=== PATIENT | male | born 1995 | race African-American/Black ===

== ENCOUNTER 2023-02-12 22:33 | Emergency (ER) | payer BC, SELFPAY ==
[2023-02-12 22:38] VITALS: BP 148/85; PULSE 82; RESP 16; TEMP 35.6; O2SAT 98
--- NOTE | 2023-02-12 22:48 | ED_ITS ---
HPI - General Adult General Time Seen by Provider: 22:48 Date Seen: 02/12/23 Chief complaint: Extremity Pain/Injury, Upper Stated complaint: sharp pain right shoulder Time Seen by Provider: 02/12/23 22:47 Source: patient, RN notes reviewed and old records reviewed Mode of arrival: ambulatory Limitations: no limitations History of Present Illness HPI narrative: 27-year-old male who comes in today with right shoulder arm pain. Patient notes diffuse pain of the right shoulder radiating down the back of the right arm into the ulnar aspect of the right hand. This started tonight after throwing a softball. Denies any head or neck injury, no chest pain or breathing difficulty. Related Data Home Medications Medication Instructions Recorded Confirmed No Known Home Medications 02/12/23 02/12/23 Allergies Allergy/AdvReac Type Severity Reaction Status Date / Time No Known Drug Allergies Allergy Verified 02/12/23 22:42 Review of Systems Status of ROS: Reports: 10 or more systems reviewed and unremarkable except as noted in History and below PFSH PFS Social History Smoking Status: Smoker, status unknown Non-prescribed substance use: denies use service: No Exam Narrative: Exam Narrative: General: well nourished , NAD Head: Atraumatic and normocephalic ENT: External ears and external nose are normal Eyes: Conjunctiva clear, pupils are equal reactive, external ocular motions are intact Neck: Full spontaneous range of motion of the neck Lungs: No respiratory distress Musculoskeletal: Tenderness of the posterior shoulder. Pain of the anterior shoulder with forward flexion and of the posterior shoulder with reaching behind the back tenderness along the lateral olecranon as well Neurologic: No gross focal neurologic deficits Skin: No rashes Psych: Mood and affect are appropriate Const: Vital Signs, click to edit/add: Vital Signs - 24 hr 02/12/23 22:38 Temperature 96.0 F L Pulse Rate [Right Pulse Oximeter] 82 Respiratory Rate 16 Blood Pressure [Le ft Upper Arm] 148/85 H Pulse Oximetry 98 Oxygen Delivery Me thod Room Air Course Course Hospital Course: Patient seen and examined, reviewed [facility] database with no records found. Patient presents with right arm pain after throwing a softball. He has some diffuse tenderness of the right shoulder but is able to reach up and take it has headphones off without difficulty. Additionally, some tenderness at the lateral elbow but describes tingling in the radial nerve distribution. No weakness of the wrist flexors or extensors, intra thenar muscles, or hospital supervisor. Likely soft tissue injury, strain or sprain with some neuropathy as well. Patient will be started on prednisone, Tylenol and ibuprofen, follow-up with primary care or orthopedics as needed Vital Signs Vital signs: Initial Vital Signs Temperature 96.0 F L 02/12/23 22:38 Temperature Source Temporal Artery Scan 02/12/23 22:38 Pulse Rate 82 02/12/23 22:38 Pulse Rhythm Regular 02/12/23 22:38 Respiratory Rate 16 02/12/23 22:38 Blood Pressure 148/85 H 02/12/23 22:38 Blood Pressure Mean 106 H 02/12/23 22:38 Blood Pressure Position Semi-Fowlers 02/12/23 22:38 Pulse Oximetry 98 02/12/23 22:38 Oxygen Delivery Method Room Air 02/12/23 22:38 Vital Signs Temperature 96.0 F L 02/12/23 22:38 Pulse Rate 82 02/12/23 22:38 Respiratory Rate 16 02/12/23 22:38 Blood Pressure 148/85 H 02/12/23 22:38 Pulse Oximetry 98 02/12/23 22:38 Oxygen Delivery Method Room Air 02/12/23 22:38 Temperature 96.0 F L 02/12/23 22:38 Pulse Rate 82 02/12/23 22:38 Respiratory Rate 16 02/12/23 22:38 Blood Pressure 148/85 H 02/12/23 22:38 Pulse Oximetry 98 02/12/23 22:38 Oxygen Delivery Method Room Air 02/12/23 22:38 Medical Decision Making Medical Records Medical records reviewed: Yes I reviewed the patient's medical records Lab Data Lab results reviewed: Yes I reviewed the patient's lab results Discharge Plan Discharge Clinical Impression: Shoulder sprain, Neuropathy of right radial nerve Patient Disposition: Home, Self-Care Condition: Stable Instructions: Shoulder Sprain (ED), Peripheral Neuropathy (ED) Additional Instructions: Take Tylenol and ibuprofen as needed for pain Take prednisone as prescribed Ice 15-20 minutes at a time every 2-3 hours while awake for the next 48 hours then switch to warm packs as desired Follow-up with orthopedic clinic [phone] in 1 week for recheck and possible physical therapy Activity Level: Activity as Tolerated Discharge Diet: Regular Prescriptions: No Action No Known Home Medications Stand Alone Forms: Flocations Info Instructions
== END 2023-02-12 23:15 | disposition home or self-care (01) ==
PROVIDERS: Emergency Provider Family Medicine
DX: S43.401A Unspecified sprain of right shoulder joint, initial encounter (principal); M54.10 Radiculopathy, site unspecified
CPT/HCPCS: 99282; 99283